=== PATIENT | male | born 1945 | race Caucasian/White ===

== ENCOUNTER 2017-01-09 12:04 | Emergency (ER) | payer MEDICARE, OTHER ==
[~2017-01-09] VITALS: Ht 175.3 cm; Wt 104.5 kg
[~2017-01-09 12:04] MED LIST: ASPIRIN 81M81 MG/TA2 PO; ASPIRIN E.C. 8181 MG PO; BENZAMYCIN 5%-31 GEL TP; CEPHALEXIN500 M1 PO; HCTZ 25MG TAB25 MG PO; IMDUR 30MG30 MG/TAB PO; K-TAB20 PO; LIPITOR 40MG TA40 MG PO; LOPRESSOR 225 MG/TAB PO; NO HOME MEDICATIONS; OMEGA-3 FISH1000 MG PO; PERCOCET 325 MG1 TA2 PO; PLAVIX 75MG TAB75 MG PO; PRINIVIL10 MG PO; PROTONIX 40MG T40 MG PO; TOPROL XL 50MG50 MG PO; XANAX 0.5MG0.5 MG PO; [UNRECOGNIZED DRUG - OTHER]
[2017-01-09 12:27] LABS: ARTERIAL BLD GAS O2 SATURATION 98.7 % (92-100); ARTERIAL BLD GAS TCO2 CT 21.6; ARTERIAL BLOOD GAS BASE EXCESS -2.2 (-2-2); ARTERIAL BLOOD GAS HCO3 20.6 meq/L (22-26); ARTERIAL BLOOD GAS PHT 7.44 C (7.35-7.45); ARTERIAL BLOOD GAS pH 7.44 (7.35-7.45); OXYHEMOGLOBIN 97.9 %
[2017-01-09 12:27] LABS: BASO % 0.3 % (0.0-2.0); EOS # 0.1 (0.0-0.7); GRAN # 4.4 (1.4-6.5); GRAN % 63.4 % (42.2-75.2); HEMATOCRIT 46.2 % (42.0-52.0); HEMOGLOBIN 16.2 g/dl (13.5-18.0); LYMPH # 1.9 (1.2-3.4); LYMPH % 26.8 % (20.0-51.0); MEAN CELL VOLUME 91 fl (80.0-100.0); MEAN CORPUSCULAR HEMOGLOBIN 32 pg (27.0-31.0); MEAN CORPUSCULAR HGB CONC 35 g/dl (33.0-37.0); MEAN PLATELET VOLUME 9.6 fl (7.4-10.4); MONO # 0.5 (0.1-0.6); MONO % 6.4 % (1.7-9.3); PLATELET COUNT 215 K/mm3 (130-400); RED BLOOD COUNT 5.07 M/mm3 (4.20-5.60); REDCELL DISTRIBUTION WIDTH-CV 11.8 % (11.5-14.5)
[2017-01-09 12:28] LABS: ARTERIAL BLOOD GAS PO2 161.6 mmHg (80-100); ARTERIAL BLOOD GAS PO2T 161.6 (80-100); ATS? YES
[2017-01-09 12:32] LABS: PROTHROMBIN TIME 11.5 SECONDS (9.7-12.8)
[2017-01-09 12:34] LABS: PARTIAL THROMBOPLASTIN TIME 29.8 SECONDS (26.0-37.0)
[2017-01-09 12:51] LABS: ADJUSTED CALCIUM 8.8 mg/dL (8.4-10.2); ALANINE AMINOTRANSFERASE 178 U/L (21-72); ALBUMIN 4.4 gm/dL (3.5-5.0); ALKALINE PHOSPHATASE 75 U/L (50-136); ANION GAP 13 mmol/L (7-16); BILIRUBIN,TOTAL 0.7 mg/dL (0.0-1.0); BLOOD UREA NITROGEN 7 mg/dL (9-20); CALCIUM 9.1 mg/dL (8.4-10.2); CARBON DIOXIDE 19 mmol/L (22-30); CHLORIDE 107 mmol/L (98-107); CREATININE, serum 0.69 mg/dL (0.66-1.25); GLUCOSE 119 mg/dL (74-106); POTASSIUM 3.5 mmol/L (3.4-5.0); SODIUM 139 mmol/L (137-145); TOTAL PROTEIN 7.3 gm/dL (6.4-8.2)
[2017-01-09 13:04] LABS: TROPONIN-I < 0.012 ng/mL (0.000-0.034)
[2017-01-09 16:27] LABS: PHOSPHOROUS 2.2 mg/dL (2.5-4.5)
[2017-01-09 17:41] VITALS: BP 119/84; PULSE 84; TEMP 98
== END 2017-01-09 16:23 | disposition short-term general hospital (02) ==
LOC: COL.ER 12:04
PROVIDERS: Emergency Medicine
DX: I25.119 Atherosclerotic heart disease of native coronary artery with unspecified angina pectoris (principal); I46.9 Cardiac arrest, cause unspecified; I10 Essential (primary) hypertension; E78.5 Hyperlipidemia, unspecified; R10.816 Epigastric abdominal tenderness; Z95.5 Presence of coronary angioplasty implant and graft; Z87.891 Personal history of nicotine dependence; Z79.02 Long term (current) use of antithrombotics/antiplatelets
CPT/HCPCS: J0282; J1650; J3010; J3475; J3480; J7060

== ENCOUNTER 2018-08-02 10:45 | Outpatient (RCR) | payer MEDICARE, OTHER | END 2018-08-03 10:08 | disposition home or self-care (01) | LOC: MKS.ESL.PT 10:45 | DX: M25.511 Pain in right shoulder (principal) ==

== ENCOUNTER 2023-05-26 09:23 | Inpatient (IN) | payer MEDICARE, OTHER ==
[2023-05-26] VITALS (9 sets, daily range): BP systolic 110–129; BP diastolic 61–80; PULSE 90–110; TEMP 97.6–103.3
[~2023-05-26] VITALS: Ht 172.7 cm; Wt 109.0 kg
[2023-05-26 09:51] LABS: HEMATOCRIT 47.9 % (42.0-52.0); HEMOGLOBIN 16.7 g/dl (13.5-18.0); MEAN CELL VOLUME 92 fl (80.0-100.0); MEAN CORPUSCULAR HEMOGLOBIN 32 pg (27-31); MEAN CORPUSCULAR HGB CONC 35 g/dl (33.0-37.0); PLATELET COUNT 190 K/mm3 (130-400); REDCELL DISTRIBUTION WIDTH-CV 12.3 % (11.5-14.5)
[2023-05-26 10:02] LABS: ALBUMIN 3.8 gm/dL (3.4-4.8); BILIRUBIN,TOTAL 1.5 mg/dL (0.2-1.2); CALCIUM 9.6 mg/dL (8.4-10.2); CREATININE, serum 0.98 mg/dL (0.72-1.25); POTASSIUM 3.2 mmol/L (3.5-4.5); TOTAL PROTEIN 7.5 gm/dL (6.2-8.1)
[2023-05-26 10:08] LABS: TROPONIN-I 0.022 ng/mL (0.00-0.033)
[2023-05-26 10:29] LABS: BAND 32 % (0-10); LYMPHOCYTE 5 % (20.0-51.0); NEUTROPHILS 63 % (42.0-75.2)
[2023-05-26 10:30] LABS: PLATELET ESTIMATE NORMAL (NORMAL)
[2023-05-26 11:13] LABS: COLLECTION METHOD CLEAN CATCH
[2023-05-26 11:36] LABS: PH 5.5 (5.0-8.5); URINE APPEARANCE Hazy (CLEAR/HAZY); URINE BLOOD 2+ (NEGATIVE); URINE COLOR Yellow (YELLOW); URINE GLUCOSE Negative (NEGATIVE); URINE KETONE Negative (NEGATIVE); URINE NITRATE Positive (NEGATIVE); URINE PROTEIN(semi-quant) 2+ (NEGATIVE); URINE UROBILINOGEN 0.2 E.U/dL (0.2-1.0); URINE WBC 20-50 /hpf (0-2)
[2023-05-26 11:37] LABS: MUCOUS Present (NOT PRESENT); SQUAMOUS EPITHELIAL 0-2 /hpf (0-10); URINE BACTERIA Many /hpf (NONE SEEN)
[2023-05-26] MEDS ORDERED: PRAVACHOL80 MG PO (13:35)
[2023-05-26] MEDS ORDERED: TOPROL XL 50MG50 MG PO ×2 (13:37)
[2023-05-26] MEDS ORDERED: COZAAR 25MG25 MG/TAB PO (13:39)
[2023-05-26] MEDS ORDERED: ELIQUIS 5MG PO (13:39)
[2023-05-26] MEDS ORDERED: FLOMAX 0.40.4 MG/CAP PO (13:40)
[2023-05-26] MEDS ORDERED: VITAMIN B125000 MCG PO (13:41)
--- NOTE | 2023-05-26 14:05 | NUR ---
PT ARRIVED TO ROOM 317, FAMILY AT THE BEDSIDE. PT ABLE TO TRANSFER SELF SBA FROM WHEELCHAIR TO BED, AMBULATED WELL SBA TO AND FROM THE BATHROOM. NO COMPLAINT OF PAIN ON ASSESMENT. NO SHORTNESS OF BREATH OR DIFFICULTY BREATHING. PT ON 2L OF O2VIA NC WHEN HE ARRIVED TO THE ROOM, O2SAT ON ROOM AIR WAS 93%. PT CONNECTED TO FOOD SERVICE STEWARD SHOW SINUS TACHY. LUNG SOUNDS CLEAR. NO ABDOMINAL PAIN OR DISCOMFORT. STATES HE IS ABLE TO URINATE WELL, NO URGENCY OR PAIN.
--- NOTE | 2023-05-26 20:00 | NUR ---
PCT reported to this HARDWARE ENGINEERING MANAGER that pt was having an elevated temperature. This tongue trimmer went to check pt's and he states feeling tired and lightheaded. PRN tylenol administered after checking oral t of 103.3. Physical assessment was completed. No pain reported at this time. Belongings and call light are within reach.
--- NOTE | 2023-05-26 20:14 | NUR ---
Temperature checked and is 100.9 at this time. Pt reports feeling good.
[2023-05-26 21:37] LABS: MAGNESIUM 1.5 mg/dL (1.6-2.6); PHOSPHOROUS 2.4 mg/dL (2.3-4.7)
[2023-05-26 22:27] LABS: COLLECTION METHOD CLEAN CATCH
[2023-05-26 22:55] LABS: URINE APPEARANCE Clear (CLEAR/HAZY); URINE BLOOD 2+ (NEGATIVE); URINE COLOR Yellow (YELLOW); URINE GLUCOSE Negative (NEGATIVE); URINE KETONE Negative (NEGATIVE); URINE NITRATE Negative (NEGATIVE); URINE PROTEIN(semi-quant) 1+ (NEGATIVE)
[2023-05-26 23:15] LABS: MUCOUS Present (NOT PRESENT); SQUAMOUS EPITHELIAL 0-2 /hpf (0-10); URINE BACTERIA Rare /hpf (NONE SEEN)
[2023-05-27] VITALS (11 sets, daily range): BP systolic 102–143; BP diastolic 63–85; PULSE 90–96; TEMP 98.4–100
--- NOTE | 2023-05-27 01:14 | NUR ---
When administering pt evening medications, pt expressed a concern regarding his BP medications that were placed on hold and wanted to know the reason. Pt's son called around 0030, requesting to be updated on pt's current status. This nurse answered all his questions, but he was also concerned about BP medications that were on hold due to pt's extensive cardiac history. This nurse reached Vicki, hospitalist and notify her about pt's and son's concerns about this situation, and emar was updated with new orders. Telemetry is in place to monitor pt's HR. All VS are WNL.
[2023-05-27 08:31] LABS: BASO % 0.1 % (0.0-2.0); EOS % 0.1 % (0.0-4.0); GRAN # 11.7 K/mm3 (1.4-6.5); GRAN % 84.3 % (42.2-75.2); HEMATOCRIT 41.8 % (42.0-52.0); LYMPH # 1.1 K/mm3 (1.2-3.4); LYMPH % 7.7 % (20.0-51.0); MEAN CELL VOLUME 92 fl (80.0-100.0); MEAN CORPUSCULAR HEMOGLOBIN 32 pg (27-31); MEAN CORPUSCULAR HGB CONC 35 g/dl (33.0-37.0); MEAN PLATELET VOLUME 9.6 fl (7.4-10.4); MONO % 7.1 % (1.7-9.3); PLATELET COUNT 171 K/mm3 (130-400); RED BLOOD COUNT 4.55 M/mm3 (4.20-5.60); REDCELL DISTRIBUTION WIDTH-CV 12.5 % (11.5-14.5)
[2023-05-27 08:43] LABS: HEMOGLOBIN 14.6 g/dl (13.5-18.0)
[2023-05-27 08:52] LABS: CALCIUM 8.9 mg/dL (8.4-10.2); CREATININE, serum 0.83 mg/dL (0.72-1.25); MAGNESIUM 1.8 mg/dL (1.6-2.6)
--- NOTE | 2023-05-27 10:41 | NUR ---
SW completed intake with patient. Patient provides that he lives in [facility] with spouse Lauren Pardo [phone], and son is a point of contact as well Osvaldo Montiel [phone]. Patient provides that he does not utilize DME, and is independent with ADLs, PCP is Dr. Heard, and pharmacy is [place], patient also states that he does not utilize home health services at this time. Patient provides he plans to return home upon dc. SW will continue to follow. DC plan per patient home, physical therapy recommendation home
--- NOTE | 2023-05-27 10:50 | NUR ---
Patient alert and oriented x4. Denies pain this morning. Shift assessment complete, no new variances noted. Patient noted to be incontinent of urine this morning, urine is tea colored and clear. NS discontinued per orders. Patient assisted in set up for shower, was able to shampoo/wash self. Bed linens changed. Patient currently in bed with call light in reach, all needs met at this time.
--- NOTE | 2023-05-27 18:56 | NUR ---
Patient remains stable, denies pain or discomfort. Appetite adequate. Gait/activity stable. Patient has adequate urine output, urine is yellow/clear. Currently in bed with call light in reach, all needs met at this time.
[2023-05-28] VITALS (7 sets, daily range): BP systolic 120–150; BP diastolic 80–91; PULSE 77–85; TEMP 97.8–98.8
[2023-05-28 07:43] LABS: BASO % 0.1 % (0.0-2.0); EOS # 0.1 K/mm3 (0.0-0.7); EOS % 0.8 % (0.0-4.0); GRAN # 6.3 K/mm3 (1.4-6.5); GRAN % 74.2 % (42.2-75.2); HEMATOCRIT 43.6 % (42.0-52.0); LYMPH # 1.2 K/mm3 (1.2-3.4); LYMPH % 14.5 % (20.0-51.0); MEAN CELL VOLUME 93 fl (80.0-100.0); MEAN CORPUSCULAR HEMOGLOBIN 32 pg (27-31); MEAN CORPUSCULAR HGB CONC 34 g/dl (33.0-37.0); MEAN PLATELET VOLUME 9.2 fl (7.4-10.4); MONO # 0.8 K/mm3 (0.1-0.6); MONO % 9.9 % (1.7-9.3); PLATELET COUNT 180 K/mm3 (130-400); RED BLOOD COUNT 4.68 M/mm3 (4.20-5.60); REDCELL DISTRIBUTION WIDTH-CV 12.4 % (11.5-14.5)
[2023-05-28 07:51] LABS: CALCIUM 8.7 mg/dL (8.4-10.2); CREATININE, serum 0.87 mg/dL (0.72-1.25); POTASSIUM 4.5 mmol/L (3.5-4.5)
--- NOTE | 2023-05-28 08:37 | NUR ---
SHIFT ASSESSMENT COMPLETE. VSS. PATIENT UP BRUSHING HIS TEETH AND CLEANING UP. ALL MORNING MEDS GIVEN PER ORDERS. PATIENT HAS NO COMPLAINTS OR REQUEST AT THIS TIME.
[2023-05-28] MEDS ORDERED: CEPHALEXIN500 M1 PO (11:59)
== END 2023-05-28 13:46 | disposition home or self-care (01) | DRG 871 ==
LOC: COL.ER 09:23 → MEDICAL 11:59 → EDBEDREQ 12:57 → MEDICAL 05-28 13:46
PROVIDERS: Emergency Medicine; Nurse Practitioner Family; ADMIT Internal Medicine
DX: A41.9 Sepsis, unspecified organism (principal); J96.01 Acute respiratory failure with hypoxia; N39.0 Urinary tract infection, site not specified; M54.50 Low back pain, unspecified; I10 Essential (primary) hypertension; Z20.822 Contact with and (suspected) exposure to COVID-19; E78.5 Hyperlipidemia, unspecified; R74.02 Elevation of levels of lactic acid dehydrogenase [LDH]; N40.0 Benign prostatic hyperplasia without lower urinary tract symptoms; E87.6 Hypokalemia; Z95.0 Presence of cardiac pacemaker; Z86.74 Personal history of sudden cardiac arrest; Z88.2 Allergy status to sulfonamides; Z87.891 Personal history of nicotine dependence; Z79.01 Long term (current) use of anticoagulants; Z95.5 Presence of coronary angioplasty implant and graft; Z79.899 Other long term (current) drug therapy; Z79.02 Long term (current) use of antithrombotics/antiplatelets; Z23 Encounter for immunization
CPT/HCPCS: J0696; J3475; J7030; J7120

== ENCOUNTER → 2023-06-21 | Outpatient (CLI) | payer MEDICARE, OTHER ==
[~2023-06-21] MED LIST changes: +COZAAR 25MG25 MG/TAB PO; +ELIQUIS 5MG PO; +FLOMAX 0.40.4 MG/CAP PO; +Iohexol 300 - 100 ML VIAL IV ONE; +NS 100 ML IV SCH; +PRAVACHOL80 MG PO; +VITAMIN B125000 MCG PO
== END ==
LOC: COL.RAD 13:39
DX: N28.89 Other specified disorders of kidney and ureter (principal); K62.89 Other specified diseases of anus and rectum
CPT/HCPCS: Q9967

== ENCOUNTER 2023-07-12 10:02 | Inpatient (IN) | payer OTHER ==
[~2023-07-12] VITALS: Ht 172.7 cm; Wt 103.6 kg
[~2023-07-12 10:02] MED LIST changes: -Iohexol 300 - 100 ML VIAL IV ONE; -NS 100 ML IV SCH
[2023-08-23] VITALS (126 sets, daily range): BP systolic 53–187; BP diastolic 36–91; PULSE 59–86; TEMP 97.9; O2SAT 79–100
[2023-08-23] MEDS ORDERED: Acetaminophen 500 MG TAB PO SCH ×2 (05:30→13:00)
[2023-08-23] MEDS ORDERED: Gabapentin 100 MG CAP PO SCH (05:30)
[2023-08-23] MEDS ORDERED: Celecoxib 200 MG CAP PO SCH (05:30)
[2023-08-23] MEDS ORDERED: LR 1,000 ML IV SCH ×3 (06:18→07:30)
[2023-08-23] MEDS ORDERED: Midazolam 2 MG/2 ML VIAL ONE ×2 (06:19→20:25)
[2023-08-23] MEDS ORDERED: fentaNYL 50 MCG/ML 2 ML VIAL ONE ×4 (06:19→22:10)
[2023-08-23] MEDS ORDERED: Rocuronium 50 MG/5 ML Multi-Dose VIAL ONE ×5 (06:52→22:03)
--- NOTE | 2023-08-23 06:59 | NUR ---
CELEBREX 200MG PO HELD D/T PATIENT REPORTING NAUSEA WITH TAKING MEDICATION.
[2023-08-23] MEDS ORDERED: TOPROL XL200 MG PO (07:06)
[2023-08-23] MEDS ORDERED: LIPITOR 80MG80 MG PO (07:08)
[2023-08-23] MEDS ORDERED: XANAX 0.5MG0.5 MG PO (07:09)
[2023-08-23] MEDS ORDERED: [UNRECOGNIZED DRUG - OTHER] TP (07:10)
[2023-08-23] MEDS ORDERED: REFRESH TEARS 330 ML OP (07:10)
[2023-08-23] MEDS ORDERED: LOTRIMIN45CR TOP (07:11)
[2023-08-23] MEDS ORDERED: VITAMIN D31000 I1 PO (07:13)
--- NOTE | 2023-08-23 07:15 | NUR ---
DR. BOWLES WAS NOTIFIED OF SULFA CAUSING NAUSEA AND VOMITING AND CELEBREX WAS HELD D/T POTENTIAL INTERACTION.
[2023-08-23] MEDS ORDERED: COLACE 100100 MG/CAP PO (07:28)
[2023-08-23] MEDS ORDERED: NORCO 325 MG-51 TAB PO (07:28)
[2023-08-23] MEDS ORDERED: Ondansetron 4 MG/2 ML VIAL IV PRN ×2 (07:30→10:30)
[2023-08-23] MEDS ORDERED: oxyCODONE 5 MG TAB PO PRN (07:30)
[2023-08-23] MEDS ORDERED: Naloxone 0.4 MG/ML VIAL IV PRN (07:30)
[2023-08-23] MEDS ORDERED: Morphine 4 MG/ML VIAL IV PRN (07:30)
[2023-08-23] MEDS ORDERED: Topical Skin Adhesive 1 EACH (1 ML) TOP ONE ×2 (07:50→23:20)
[2023-08-23] MEDS ORDERED: Isosorbide Mononitrate CR (24-HR) 30 MG TAB PO SCH (09:00)
[2023-08-23] MEDS ORDERED: Meperidine 50 MG/ML 1 ML VIAL IV PRN (10:30)
[2023-08-23] MEDS ORDERED: fentaNYL 50 MCG/ML 2 ML VIAL IV PRN (10:30)
[2023-08-23] MEDS ORDERED: HYDROmorphone 2 MG/1 ML VIAL IV PRN (10:30)
[2023-08-23] MEDS ORDERED: hydrALAZINE 20 MG/ML 1 ML VIAL IV PRN (10:30)
[2023-08-23] MEDS ORDERED: Carboxymethylcellulose PF Ophth 0.4 ML DROPPERETTE OP PRN (11:00)
--- NOTE | 2023-08-23 11:10 | NUR ---
Pt transported from PACU in bed. Pt is Oriented x4, very drowsy. VSS. S1S2. Clear lung sounds, diminished in bases. Pt's SpO2 is ranging from 90-95% on 3.5 L O2 via NC. ABD is rounded, soft. Pt reports ABD discomfort from surgery. x5 lap sits and midline well approximated and skin glue. 2 lap sites have mild drainage, covered with bandaids. Palpable pulses in all extremities. Aldridge catheter is in place with clear yellow urine. 18G in LH with LR at 75 cc/hr. Family ( and daughter) in room. Pt oriented to call light and room.
--- NOTE | 2023-08-23 11:46 | NUR ---
Pt drowsy. \pulse \ox steadily at 94-95%. Titrated O2 to 3 L via NC.
--- NOTE | 2023-08-23 12:54 | NUR ---
Pt's oxygen levels steady at 95-97%. Titrated O2 down to 2L via NC
--- NOTE | 2023-08-23 14:36 | NUR ---
Pt requested to go to bathroom. VSS and pain tolerable. Pt sat at edge of bed and began dry heaving. After 1 min, small emesis - yellow bile. Noticed blood on gown. Pt laid back down and top of midline incision and lap site right above started bleeding. Cleaned Pt up and covered bleeding sites with gauze and foam tape. Will continue to monitor. Pt has call light in reach and bed alarm on.
--- NOTE | 2023-08-23 15:00 | NUR ---
dr Buck updated on patients blood pressures of 90s/50s and incisional bleeding, new dressing applied and cdi. new orders for CBC, BMP, 500cc NS bolus and hospitalist consult, Marylin PASCUAL notified of consult.
[2023-08-23] MEDS ORDERED: NS 500 ML IV ONE (15:15)
--- NOTE | 2023-08-23 15:15 | NUR ---
Marita PASCUAL in to see pt. blood pressures remain stable. pt a&ox4.
[2023-08-23 16:08] LABS: HEMATOCRIT 38.2 % (42.0-52.0); HEMOGLOBIN 13.1 g/dl (13.5-18.0); MEAN CELL VOLUME 93 fl (80.0-100.0); MEAN CORPUSCULAR HEMOGLOBIN 32 pg (27-31); MEAN CORPUSCULAR HGB CONC 34 g/dl (33.0-37.0); MEAN PLATELET VOLUME 9.7 fl (7.4-10.4); PLATELET COUNT 251 K/mm3 (130-400); RED BLOOD COUNT 4.11 M/mm3 (4.20-5.60); REDCELL DISTRIBUTION WIDTH-CV 12.3 % (11.5-14.5)
[2023-08-23 16:16] LABS: CALCIUM 8.4 mg/dL (8.4-10.2); POTASSIUM 4.6 mEq/L (3.5-4.5)
[2023-08-23] MEDS ORDERED: LR 500 ML IV ONE (16:45)
--- NOTE | 2023-08-23 17:00 | NUR ---
Updated Marylin Richards about Pt's BP (90s/50s with maps in low 70s). Marylin stated she was leaving for the day but Dr Torrez would be taking over.
--- NOTE | 2023-08-23 17:10 | NUR ---
spoke to strategy execution consultant occupational analyst with Dr Jhon Harley office in [place] at [phone] about prior records from their office. provider does not have faxing capabilities, if records are needed will need to call the office back tomorrow. 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 Last echo on 07/10/23 showed EF of 55-60%. No hx of CHF. pt on Eliquis and Plavix, both medications have been on hold for surgery.
[2023-08-23 17:30] LABS: BAND 5 % (0-10); LYMPHOCYTE 2 % (20.0-51.0); NEUTROPHILS 90 % (42.0-75.2); PLATELET ESTIMATE NORMAL (NORMAL)
--- NOTE | 2023-08-23 17:31 | NUR ---
1500 - Pt reported he needed to have a BM. Sat Pt on side of bed. Pt started dry heaving and Blood Pressures dropped. Pt had small yellow emesis. Laid Pt back in bed. 1545 - Pt reported shoulder pain, aching. Post Op Vitals showed drop in BP. Notified hospitalist. Per Marylin Richards, run 500 NS bolus. After bolus pressures elevated to 90s/50s with MAPs in low 60s. Marylin Richards ordered second bolus (500 LRS). Pressures remaining in 90/50s. 0515 - Family reported Pt feeling nauseated and dry heaving. Reminded Pt to splint incision. Gauze dressing was bloody. Changed dressing. Placed steri-strips, gauze, and foam tape. Dr Olsen rounded on Pt. Raúl said incision site looks good. Per Dr Marques, ok to run 3rd fluid bolus if needed.
--- NOTE | 2023-08-23 18:00 | NUR ---
this nurse and PCT in w pt to assist off bedpan, pt unsuccessful with bowel movement. pt repositioned in bed. this nurse noticed bleeding through abdominal dressing and new formed swelling on left side of abdomen, pressure applied. bp dropped to 60/36. fluids running at 75ml/hr.
--- NOTE | 2023-08-23 18:15 | NUR ---
dr owen called to update on pts low blood pressures and abominal incision bleeding, reports will be in to see pt.
[2023-08-23] MEDS ORDERED: NS 1,000 ML IV ONE ×3 (18:30→20:00)
[2023-08-23] MEDS ORDERED: Iodixanol-320 100 ML BOTTLE IV ONE (18:44)
[2023-08-23] MEDS ORDERED: NS 50 ML IV SCH (18:44)
[2023-08-23] MEDS ORDERED: LR 1,000 ML IV ONE ×2 (18:45)
--- NOTE | 2023-08-23 18:45 | NUR ---
Primary nurse in room asking for assistance. PCT grabbed me approximately 1800. Pt BP was low and pt appeared lethargic. Lap sites to abd were dripping consistent blood. Primary nurse had reinforced incisions and applied steristrips at earlier time, Dr Buck aware. At [address] Buck for advice on bleeding from incisions. Order for ABD pads to abd followed by abdominal binder. Called House back to get binder. Grabbed supplies while on phone with Dr Buck. Upon entering back to room, VS were dropping and pt appeared pale. ICU charge called at 1814 for cat call then called [employer] Press Operator to notify ICU charge and cat call needed. During this time primary nurse was calling Dr Torrez. All arrived around 1816.
[2023-08-23] MEDS ORDERED: NS 1,000 ML IV SCH ×2 (20:00→21:15)
[2023-08-23] MEDS ORDERED: Lidocaine PF 2% (20 MG/ML) 5 ML VIAL ONE (20:25)
[2023-08-23] MEDS ORDERED: Phenylephrine 10 MG/ML VIAL ONE (20:27)
[2023-08-23] MEDS ORDERED: [UNRECOGNIZED DRUG - OTHER] IV ONE ×2 (20:53→23:10)
[2023-08-23] MEDS ORDERED: HETASTARCH IV ONE ×2 (20:53→23:10)
--- NOTE | 2023-08-23 20:55 | NUR ---
RECEIVED REPORT AT THE BEDSIDE FROM THE DAYTIME SURGICAL NURSES. THE PATIENT IS AWAKE ALERT AND ORIENTED SITTING UP IN THE BED. LOO CATHETER IN PLACE DRAINING URINE. AN IV IN THE LEFT HAND INFUSING A LR FLUID BOLUS FOR LOW BLOOD PRESSURES. WITH THE SURGICAL NURSES WE LOOKED AT THE MIDLINE SURGICAL SITE AND THE LAP SITES. CALL HARDING AT THE BEDSIDE AND BED ALARM ON. FAMILY IS IN THE WAITING ROOM.
[2023-08-23] MEDS ORDERED: Losartan 25 MG TAB PO SCH (21:00)
[2023-08-23 21:37] LABS: BASO % 0.1 % (0.0-2.0); GRAN # 13.4 K/mm3 (1.4-6.5); GRAN % 85.7 % (42.2-75.2); LYMPH # 1.4 K/mm3 (1.2-3.4); LYMPH % 8.6 % (20.0-51.0); MEAN CELL VOLUME 95 fl (80.0-100.0); MEAN CORPUSCULAR HGB CONC 34 g/dl (33.0-37.0); MEAN PLATELET VOLUME 9.5 fl (7.4-10.4); MONO # 0.8 K/mm3 (0.1-0.6); PLATELET COUNT 256 K/mm3 (130-400); RED BLOOD COUNT 3.19 M/mm3 (4.20-5.60); REDCELL DISTRIBUTION WIDTH-CV 12.5 % (11.5-14.5)
[2023-08-23 21:40] LABS: HEMATOCRIT 30.2 % (42.0-52.0); HEMOGLOBIN 10.3 g/dl (13.5-18.0); MEAN CORPUSCULAR HEMOGLOBIN 32 pg (27-31)
[2023-08-23 21:55] LABS: INR 1.2 (0.8-3.0); PROTHROMBIN TIME 13.4 SECONDS (9.7-12.8)
[2023-08-23] MEDS ORDERED: Tranexamic Acid 1,000 MG/10 ML VIAL ONE ×2 (22:04→23:14)
[2023-08-23 22:25] LABS: PARTIAL THROMBOPLASTIN TIME 17.7 SECONDS (26.0-37.0)
--- NOTE | 2023-08-23 23:50 | NUR ---
RECEIVED PT BACK FROM THE OR. THE PATIENT HAS RETURNED INTUBATED. NO DRIP SEDATION OR PAIN MEDICATION. PT HAS NS DRIPPING IN CURRENTLY. LOO CATHETER REMAINS IN PLACE. A LEFT RADIAL ART LINE AND RIGHT IJ WERE PLACED IN THE OR. THE PATIENT HAS [place] DRAIN IN PLACE DRAINING BLOOD AND FILLING THE BULB RATHER QUICKLY. PT STILL HAS THE MIDLINE INCISION AND LAP SITES FROM THE PREVIOUS SURGERY.
--- NOTE | 2023-08-23 23:55 | NUR ---
SPOKE TO DR. GRULLON CONCERNING THE PATIENTS [place] DRAIN. THE DRAINAGE APPEARS TO BE BLOODY AND THERE IS A CONTINUOUS DRIP IN THE KY. THERE WAS APPROX 170ML OUT IN 15 MINUTES. DID NOT RECEIVED ANY NEW ORDERS AND WAS TOLD TO MONITOR HEMODYNAMICS.
[2023-08-24] VITALS (1299 sets, daily range): BP systolic 102–148; BP diastolic 49–79; PULSE 60–86; TEMP 97.1–98.2; O2SAT 82–100
[2023-08-24 00:38] LABS: BASO % 0.1 % (0.0-2.0); GRAN # 9.9 K/mm3 (1.4-6.5); GRAN % 86.3 % (42.2-75.2); HEMOGLOBIN 11.3 g/dl (13.5-18.0); LYMPH # 0.8 K/mm3 (1.2-3.4); LYMPH % 7.2 % (20.0-51.0); MEAN CELL VOLUME 93 fl (80.0-100.0); MEAN CORPUSCULAR HEMOGLOBIN 31 pg (27-31); MEAN CORPUSCULAR HGB CONC 33 g/dl (33.0-37.0); MEAN PLATELET VOLUME 9.8 fl (7.4-10.4); MONO # 0.7 K/mm3 (0.1-0.6); MONO % 5.9 % (1.7-9.3); PLATELET COUNT 212 K/mm3 (130-400); RED BLOOD COUNT 3.64 M/mm3 (4.20-5.60); REDCELL DISTRIBUTION WIDTH-CV 14.1 % (11.5-14.5)
[2023-08-24 00:40] LABS: HEMATOCRIT 33.8 % (42.0-52.0)
[2023-08-24] MEDS ORDERED: Naloxone 0.4 MG/ML VIAL IV PRN (00:45)
[2023-08-24] MEDS ORDERED: fentaNYL 100 ML IV SCH (00:45)
[2023-08-24 00:51] LABS: CALCIUM 7.2 mg/dL (8.4-10.2); CREATININE, serum 1.07 mg/dL (0.72-1.25); MAGNESIUM 1.5 mg/dL (1.6-2.6); POTASSIUM 4.9 mEq/L (3.5-4.5)
[2023-08-24 04:08] LABS: ARTERIAL BLOOD GAS BASE EXCESS -5.5 (-2-2); ARTERIAL BLOOD GAS HCO3 18.7 meq/L (22-26); ARTERIAL BLOOD GAS PCO2 32.1 mmHg (35-45); ARTERIAL BLOOD GAS PO2 80.7 mmHg (80-100); ARTERIAL BLOOD GAS pH 7.38 (7.35-7.45)
[2023-08-24 04:09] LABS: ARTERIAL BLD GAS O2 SATURATION 96.3 % (92-100); ARTERIAL BLD GAS TCO2 CT 15.5
[2023-08-24 05:43] LABS: BASO % 0.1 % (0.0-2.0); GRAN # 8.3 K/mm3 (1.4-6.5); HEMOGLOBIN 10.6 g/dl (13.5-18.0); LYMPH # 1.2 K/mm3 (1.2-3.4); MEAN CELL VOLUME 91 fl (80.0-100.0); MEAN CORPUSCULAR HEMOGLOBIN 31 pg (27-31); MEAN CORPUSCULAR HGB CONC 34 g/dl (33.0-37.0); MEAN PLATELET VOLUME 9.4 fl (7.4-10.4); MONO # 1.1 K/mm3 (0.1-0.6); MONO % 10.5 % (1.7-9.3); PLATELET COUNT 188 K/mm3 (130-400); RED BLOOD COUNT 3.39 M/mm3 (4.20-5.60); REDCELL DISTRIBUTION WIDTH-CV 14.7 % (11.5-14.5)
[2023-08-24 06:04] LABS: HEMATOCRIT 30.9 % (42.0-52.0)
--- NOTE | 2023-08-24 07:05 | NUR ---
Report received from YANET Mckeon. Pt currently intubated and sedated; able to follow commands with ease. Blood present in [place] drain. Dr. Buck present during report and aware of output from [place] overnight and this AM. Pt VS within normal limits. Bilateral soft wrist restraints in place. Pt appears to be resting comfortably. Abdomen visualized with YANET Mckeon.
[2023-08-24] MEDS ORDERED: Pantoprazole 40 MG in NS 10 ML IV SCH (09:00)
[2023-08-24] MEDS ORDERED: Magnesium Sulfate 4% 50 ML IV ONE (09:00)
[2023-08-24] MEDS ORDERED: 1: LR 1,000 ML 2: NS 1,000 ML IV SCH (09:00)
[2023-08-24 11:05] LABS: HEMATOCRIT 29.7 % (42.0-52.0); HEMOGLOBIN 10.2 g/dl (13.5-18.0)
--- NOTE | 2023-08-24 11:11 | NUR ---
Dispatcher Street Department met with patient's family at bedside as patient is currently intubated. Patient's , Lauren (ph#[phone]) and daughter, Makenzie are at bedside. [place] a [place] address. Patient is on the Red Team at the [facility] and also sees Dr. Mirna Heard at [facility]. [facility] however also uses [facility] as needed. Patient does not use any DME, is independent with ADLS, and is able to drive. Patient's , Lauren reported there are completed Advance Directives. SW contacted [facility] to obtain a copy. Patient's , Lauren and son, Osvaldo (ph#[phone]) are listed. Discharge Plan: TBD, patient intubated. Possibly Home.
--- NOTE | 2023-08-24 17:28 | NUR ---
SEDATION VACATION NOT NECESSARY; PT ABLE TO WAKE AND FOLLOW COMMANDS WITH EASE.
[2023-08-24 18:37] LABS: HEMATOCRIT 28.5 % (42.0-52.0); HEMOGLOBIN 9.8 g/dl (13.5-18.0)
--- NOTE | 2023-08-24 19:20 | NUR ---
Received report from YANET Bennett. Pt is intubated and sedated at this time. Pt's vitals are stable. ART line in place with a good wave form. Pt has fentanyl, propofol, and NS running at this time. Pt has an OG in that is on LIS. Aldridge is in place with no kinks in tubing. Pt's midline is clean, dry and intact along with the 4 lap sites. KY drain has drainage and the dressing around the site was soaked. Dressing change was done with YANET Bennett. Will continue with pt care.
--- NOTE | 2023-08-24 19:45 | NUR ---
This nurse and YANET Smith doing report and assessing patient together; noticed bloody drainage on abdominal binder and KY dressing soaked with bloody drainage; dressing removed and new one placed around KY. Dr. Buck happened to call during this time to check on pt. This nurse reported to him that pt had 280ml bloody drainage out from KY during dayshift, but now looks like drainage is beginning to increase; asked at one point or amount of drainage he would like to be notified. Dr. Buck states that he does not need to be notified of output from KY even if it is >1000ml. This nurse also reported to him that KY dressing was saturated with bloody drainage and changed. No new orders received.
[2023-08-24 23:54] LABS: HEMATOCRIT 26.8 % (42.0-52.0); HEMOGLOBIN 9.2 g/dl (13.5-18.0)
[2023-08-25] VITALS (1416 sets, daily range): BP systolic 98–137; BP diastolic 48–81; PULSE 64–115; TEMP 97.2–99.7; O2SAT 85–100
[2023-08-25 04:44] LABS: BASO % 0.1 % (0.0-2.0); EOS % 0.1 % (0.0-4.0); GRAN # 5.9 K/mm3 (1.4-6.5); GRAN % 69.6 % (42.2-75.2); LYMPH # 1.7 K/mm3 (1.2-3.4); LYMPH % 20.3 % (20.0-51.0); MEAN CELL VOLUME 93 fl (80.0-100.0); MEAN CORPUSCULAR HGB CONC 33 g/dl (33.0-37.0); MEAN PLATELET VOLUME 9.7 fl (7.4-10.4); MONO # 0.8 K/mm3 (0.1-0.6); MONO % 9.5 % (1.7-9.3); PLATELET COUNT 173 K/mm3 (130-400); RED BLOOD COUNT 2.81 M/mm3 (4.20-5.60); REDCELL DISTRIBUTION WIDTH-CV 14.7 % (11.5-14.5)
[2023-08-25 04:48] LABS: HEMATOCRIT 26.2 % (42.0-52.0); HEMOGLOBIN 8.7 g/dl (13.5-18.0); MEAN CORPUSCULAR HEMOGLOBIN 31 pg (27-31)
[2023-08-25 05:02] LABS: CALCIUM 7.6 mg/dL (8.4-10.2); MAGNESIUM 2.1 mg/dL (1.6-2.6); POTASSIUM 4.2 mEq/L (3.5-4.5)
[2023-08-25 05:46] LABS: ARTERIAL BLD GAS O2 SATURATION 98.2 % (92-100); ARTERIAL BLD GAS TCO2 CT 21.9; ARTERIAL BLOOD GAS BASE EXCESS -2.9 (-2-2); ARTERIAL BLOOD GAS HCO3 20.9 meq/L (22-26); ARTERIAL BLOOD GAS PCO2 32.5 mmHg (35-45); ARTERIAL BLOOD GAS PO2 119.3 mmHg (80-100); ARTERIAL BLOOD GAS pH 7.43 (7.35-7.45)
--- NOTE | 2023-08-25 06:22 | NUR ---
Sedation vacation not done due to wanting pt to get rest and not to cough. When pt starts to wake up they will start to cough on the vent and want to prevent causing a rupture and a bleed in the abdomen. Pt follows commands on the sedation that he is on at this time.
--- NOTE | 2023-08-25 06:28 | NUR ---
Pt had an uneventful night. Pt has a KY drain in place. Pt is intubated and lying in bed with propofol, fentanyal, and fluids running at this time. Pt has a serrano in place with no kinks in tubing and had adequate urine output. Pt's vitals have been stable throuhgout the night. Pt's midline site and four lap sites are clean, dry and intact and open to air. Pt's KY dressing has been clean, dry and intact since it was changed at the beginning of the shift. Will give report to day shift nurse.
--- NOTE | 2023-08-25 07:00 | NUR ---
Report received from YANET Smith. Pt has no major events overnight. HGB continues to trend down. BP running 90's over 40's. Pt able to wake and follow commands. 190ml bloody fluid out of KY drain. Pt remains intubated and sedated. Bilateral soft wrist restraints in place for line protection. Pt tolerating ventilator well. No signs or symptoms of discomfort at this time.
--- NOTE | 2023-08-25 08:40 | NUR ---
Sedation turned off at 0840 for weaning trial and patient placed on weaning trial by RT shortly after. Pt extubated at 0933 by MOHIT Miranda. Pt tolerated well and now wearing 4L NC. Pt alert and orieted. Follows commands with eaase and asks questions about what occured. Pt's questioned answered appropriately. Pt's and daughter aware of extubation and brought back to pt's room shortly after.
[2023-08-25] MEDS ORDERED: LR 1,000 ML IV SCH (08:45)
[2023-08-25] MEDS ORDERED: hydrALAZINE 20 MG/ML 1 ML VIAL IV PRN (11:15)
--- NOTE | 2023-08-25 11:15 | NUR ---
Patient is extubated and PT/OT are ordered. Will await their evaluations for recommendation on disposition.
--- NOTE | 2023-08-25 14:36 | NUR ---
This nurse was in pt's room and noticed on monitor that patient's heart rhythm was in AFIB with a rate in the 110's-120. Pt's BP remains within range and patient is not symptomatic. Attempted to notify Dr. Torrez but was unable to reach her.
[2023-08-25] MEDS ORDERED: ASPIRIN E.C. 8181 MG PO (14:40)
[2023-08-25] MEDS ORDERED: Metoprolol Tartrate 50 MG TAB PO SCH (15:13)
[2023-08-25 19:01] LABS: HEMATOCRIT 26.8 % (42.0-52.0); HEMOGLOBIN 9.1 g/dl (13.5-18.0)
[2023-08-26] VITALS (1327 sets, daily range): BP systolic 104–126; BP diastolic 59–87; PULSE 68–102; TEMP 97.6–98.7; O2SAT 82–100
[2023-08-26 04:47] LABS: BASO % 0.1 % (0.0-2.0); EOS # 0.1 K/mm3 (0.0-0.7); EOS % 0.8 % (0.0-4.0); GRAN # 5.3 K/mm3 (1.4-6.5); GRAN % 67.3 % (42.2-75.2); LYMPH # 1.7 K/mm3 (1.2-3.4); LYMPH % 21.7 % (20.0-51.0); MEAN CELL VOLUME 93 fl (80.0-100.0); MEAN CORPUSCULAR HGB CONC 34 g/dl (33.0-37.0); MEAN PLATELET VOLUME 9.6 fl (7.4-10.4); MONO # 0.8 K/mm3 (0.1-0.6); MONO % 9.7 % (1.7-9.3); PLATELET COUNT 180 K/mm3 (130-400); RED BLOOD COUNT 2.72 M/mm3 (4.20-5.60); REDCELL DISTRIBUTION WIDTH-CV 14.5 % (11.5-14.5)
[2023-08-26 04:53] LABS: HEMATOCRIT 25.4 % (42.0-52.0); HEMOGLOBIN 8.5 g/dl (13.5-18.0); MEAN CORPUSCULAR HEMOGLOBIN 31 pg (27-31)
[2023-08-26 05:04] LABS: CALCIUM 8.1 mg/dL (8.4-10.2); CREATININE, serum 0.96 mg/dL (0.72-1.25); MAGNESIUM 1.9 mg/dL (1.6-2.6); POTASSIUM 3.9 mEq/L (3.5-4.5)
--- NOTE | 2023-08-26 07:51 | NUR ---
RECEIVED REPORT FROM NIGHTSHIFT RNCABRERA. PATIENT RESTING IN BED WITH EYES CLOSED. BED IN A LOW POSITION, ALARM ON. CALL LIGHT WITHIN REACH.
--- NOTE | 2023-08-26 08:56 | NUR ---
HEAD TO TOE ASSESSMENT COMPLETED. PATIENT IS ALERT AND ORIENTED, BUT DROWSY. PATIENT HAS DISCOMFORT IN ABDOMEN. PUPILS EQUAL AND REACTIVE. HEART SOUNDS REGULAR WITH S1 AND S2 NOTED. LUNG SOUNDS CLEAR BILATERALLY WITH DIMINISHING NOTED TO BASES BILATERALLY. BOWEL SOUNDS ACTIVE X4. MIDLINE INCISION AND 4 LAP SITES CLEAN, DRY, AND INTACT WITH GLUE. PATIENT HAS LOO DRAINING CLEAR, YELLOW URINE. KY DRAIN WITH PROSPER RED BLOOD. PULSES PRESENT AND EQUAL BILATERALLY IN UPPER AND LOWER EXTREMITIES. PATIENT HAS EDEMA NOTED TO BILATERAL LOWER EXTREMITIES AND HANDS. MEDICATIONS ADMINISTERED PER EMAR. BED IN A LOW POSITION. CALL LIGHT WITHIN REACH.
[2023-08-26] MEDS ORDERED: Phenol 1.4% Spray 180 ML BOTTLE MM PRN (09:00)
--- NOTE | 2023-08-26 14:24 | NUR ---
KY drain discontinued per orders. Guaze and tape applied to wound. Pt tolerated procedure without difficulty.
--- NOTE | 2023-08-26 14:26 | NUR ---
Art line disconinued per orders. Pt toleated procedure without issues. Pressure held for 5 mintures and dressed with gazue and tegaderm.
[2023-08-27] VITALS (475 sets, daily range): BP systolic 127–148; BP diastolic 60–80; PULSE 72–102; TEMP 98–98.8; O2SAT 90–100
[2023-08-27 05:13] LABS: BASO % 0.1 % (0.0-2.0); EOS # 0.1 K/mm3 (0.0-0.7); EOS % 1.5 % (0.0-4.0); GRAN # 5.7 K/mm3 (1.4-6.5); GRAN % 71.1 % (42.2-75.2); LYMPH # 1.5 K/mm3 (1.2-3.4); LYMPH % 18.2 % (20.0-51.0); MEAN CELL VOLUME 90 fl (80.0-100.0); MEAN CORPUSCULAR HGB CONC 35 g/dl (33.0-37.0); MEAN PLATELET VOLUME 9.4 fl (7.4-10.4); MONO # 0.7 K/mm3 (0.1-0.6); MONO % 8.3 % (1.7-9.3); PLATELET COUNT 183 K/mm3 (130-400); RED BLOOD COUNT 2.75 M/mm3 (4.20-5.60); REDCELL DISTRIBUTION WIDTH-CV 13.5 % (11.5-14.5)
[2023-08-27 05:15] LABS: HEMATOCRIT 24.8 % (42.0-52.0); HEMOGLOBIN 8.6 g/dl (13.5-18.0); MEAN CORPUSCULAR HEMOGLOBIN 31 pg (27-31)
[2023-08-27 05:33] LABS: CALCIUM 8.2 mg/dL (8.4-10.2); CREATININE, serum 0.86 mg/dL (0.72-1.25); MAGNESIUM 1.7 mg/dL (1.6-2.6); POTASSIUM 3.8 mEq/L (3.5-4.5)
--- NOTE | 2023-08-27 08:52 | NUR ---
RECEIVED REPORT FROM NIGHTSHIFT RNCABRERA. PATIENT RESTING IN BED WITH EYES CLOSED AT THIS TIME. BED IN A LOW POSITION, ALARM ON. CALL LIGHT WITHIN REACH.
--- NOTE | 2023-08-27 08:55 | NUR ---
HEAD TO TOE ASSESSMENT COMPLETED. PATIENT IS ALERT AND ORIENTED. PUPILS EQUAL AND REACTIVE. HEART SOUNDS REGULAR WITH S1 AND S2 NOTED. LUNG SOUNDS CLEAR BILATERALLY WITH DIMINISHING IN THE BASES. BOWEL SOUNDS ACTIVE X4. MID-LINE INCISION AND LAP SITES ALL CLEAN AND INTACT WITH GLUE. KY DRAIN SITE DRESSING CDI. PATIENT HAS LOO IN PLACE DRAINING CLEAR, YELLOW URINE. PULSES PRESENT BILATERALLY IN UPPER AND LOWER EXTREMITIES. MEDICATIONS ADMINISTERED PER EMAR. NO NEW SKIN ISSUES NOTED. BREAKFAST AT BEDSIDE. PATIENT SAT UP IN BED TO EAT. BED IN A LOW POSITION, ALARM ON. CALL LIGHT WITHIN REACH.
--- NOTE | 2023-08-27 11:59 | NUR ---
REPORT CALLED TO SHIRA LOG HOOKER. PATIENT TRANSPORTED VIA BED ACCOMPANIED BY THIS RN AND JUANITA STUDENT NURSE. ALL BELONGINGS TAKEN WITH. FAMILY AT BEDSIDE. PATIENT MOVED INTO ROOM 323 ON SURGICAL.
--- NOTE | 2023-08-27 12:03 | NUR ---
PT TX FROM ICU TO 323. PT IS AXOX3. PT IS ON RA AND NOT ON TELE. VSS. FAMILY BEDSIDE. IVF RUNNING. PT AND FAMILY ORIENTED TO ROOM AND UNIT. CALL LIGHT GIVEN TO PT AND INSTRUCTED TO CALL WITH ALL NEEDS.
--- NOTE | 2023-08-27 18:52 | NUR ---
Medicated with Oxycodone 5mg po for back and abd pain.
--- NOTE | 2023-08-27 21:00 | NUR ---
Pt given HS meds. Abd with bruising, has robotic sites x4 glued/dry, has small midline glued/dry. Has old KY site with dry drsg covering. Voiding per urinal without problem. SCD's on. Has RIJ with IVF infusing without problem.
--- NOTE | 2023-08-27 23:03 | NUR ---
Asking for pain meds, Oxycodone 5mg po given now for abd and back pain.
[2023-08-28] VITALS (11 sets, daily range): BP systolic 134–153; BP diastolic 74–82; PULSE 74–82; TEMP 97.8–98.8
--- NOTE | 2023-08-28 03:39 | NUR ---
PT AWAKE, VOIDING WITHOUT PROBLEM. IVF CONTINUE TO RIJ. MEDICATED WITH OXYCODONE 5MG PO FOR ABD PAIN.
[2023-08-28] MEDS ORDERED: Magnes Hydrox (MOM) 80 MG/ML 30 ML CUP PO ONE (07:15)
--- NOTE | 2023-08-28 07:45 | NUR ---
Pt laying in bed. A&Ox4. VSS. S1S2. Claer lung sounds, diminished in bases. ABD is rounded, soft. Pt reports aching soreness across ABD. Pt states pain is more discomfort and rates it 5/10. Refused medication. Pt using urinal at bedside for voiding - no issues, clear, yellow urine. Pt has midline incision - well approximated and open to air. 4 lap sites are CDI covered with bandaids. Large ecchymosis on left flank spanning from lower ribs to pelvic area. SCDs on. Pt has call light in reach and bed alarm on.
[2023-08-28] MEDS ORDERED: Polyethylene Glycol 3350 17 GM PDS PO SCH (09:01)
--- NOTE | 2023-08-28 12:06 | NUR ---
Pt sitting up in chair. Pt reporting back aches (chronic), 08/29. Pt stated he would stay sitting up until after lunch then would like to lay down and requested pain meds at that time. at bedside. Pt reported feeling week in the legs when PT was working with him. Talked to Pt and family abour rebuilding strength and it may take some time. No further needs at this time. Call light in reach and chair alarm on.
--- NOTE | 2023-08-28 12:41 | NUR ---
Pt in bed side chair. Repositioned Pt to sit up with lunch tray. No further needs at this time. Chair alarm on, call hernandez in reach.
--- NOTE | 2023-08-28 16:11 | NUR ---
Pt laying in bed, son at bedside. Pt reports pain is better, but still present. Rates pain 5/10, mainly an ache in lower back. Pt open to trying a warm blanket to see if pain can be relieved. Pt had a few questions regarding bowel regiment and laxatives. Answered Pt questions. Pt has call light in reach and bed alarm is on.
--- NOTE | 2023-08-28 17:30 | NUR ---
Pt laying in bed. at bedside. Pt reporting aching pain in lower back - refuses pain meds at this time. Pt had questions regarding IPR. Discussed and answered patient and family questions. Pt seemed agreeable to IPR and expressed interestin more Physical Therapy.
[2023-08-28] MEDS ORDERED: Docusate Sodium 100 MG CAP PO SCH (21:00)
--- NOTE | 2023-08-28 21:51 | NUR ---
PT IN BED, ASSISTED WITH REPOSITIONING UP IN THE BED. HS MEDS GIVEN INCLUDING OXYCODONE 5MG PO FOR ABD/BACK PAIN. HAS RIJ WITH IVF INFUSING WITHOUT PROBLEM. DRSG D/I TO OLD KY SITE, OTHER ROBOTIC INCISIONS TO ABD GLUED/DRY. VOIDING WITHOUT PROBLEM YELLOW URINE. SCDS ON. REPORTS SMALL BM TODAY.
[2023-08-29] VITALS (7 sets, daily range): BP systolic 139–144; BP diastolic 70–84; PULSE 76–90; TEMP 98–99.5
--- NOTE | 2023-08-29 05:29 | NUR ---
PT ASKING IF HE STILL NEEDS THE IVF, VOIDING WELL. EATING AND DRINKING WITHOUT PROBLEM. [facility] DRAWN [facility].
[2023-08-29 06:30] LABS: BASO % 0.1 % (0.0-2.0); EOS # 0.2 K/mm3 (0.0-0.7); EOS % 2.5 % (0.0-4.0); GRAN # 5.8 K/mm3 (1.4-6.5); GRAN % 68.2 % (42.2-75.2); LYMPH # 1.4 K/mm3 (1.2-3.4); LYMPH % 16.2 % (20.0-51.0); MEAN CELL VOLUME 90 fl (80.0-100.0); MEAN CORPUSCULAR HGB CONC 35 g/dl (33.0-37.0); MEAN PLATELET VOLUME 9.6 fl (7.4-10.4); MONO % 11.7 % (1.7-9.3); PLATELET COUNT 218 K/mm3 (130-400); RED BLOOD COUNT 2.88 M/mm3 (4.20-5.60); REDCELL DISTRIBUTION WIDTH-CV 13.5 % (11.5-14.5)
[2023-08-29 06:31] LABS: HEMATOCRIT 25.8 % (42.0-52.0); HEMOGLOBIN 9.1 g/dl (13.5-18.0); MEAN CORPUSCULAR HEMOGLOBIN 32 pg (27-31)
[2023-08-29 06:48] LABS: CALCIUM 8.4 mg/dL (8.4-10.2); CREATININE, serum 0.83 mg/dL (0.72-1.25); MAGNESIUM 1.9 mg/dL (1.6-2.6)
--- NOTE | 2023-08-29 07:55 | NUR ---
Pt laying in bed. A&Ox4. VSS. S1S2. Clear lungs, diminished in bases. ABD is rounded, soft, non-tender. Pt reports pain 3/10 across lower back. Offered pain meds or warm blanket, Pt refused. Palpable pulses in lower extremities. Central line is patent. Positive blood draw in blue and brown ports. White port does not pull back, but flushes easiliy. x4 Lap sites are well approximated with mild redness. Midline incision is well approximated. Previous drain site is CDI with gauze covering. Ecchymosis along L flank from lower ribs to top of pelvis. Repositioned Pt. Call light in reach and bed alarm on.
--- NOTE | 2023-08-29 09:16 | NUR ---
SW attended cinical rounds. Patient to be discharged to IPR today. Patient agreeable. JOE collaborated with IPR Director Enedina. Discharge Plan: IPR
--- NOTE | 2023-08-29 10:34 | NUR ---
Pt reports feeling generalized weakness. Yellowing Ecchymosis noted on left abdomen from rib cage to groin. Pt reports 3/10 pain, but denies pain medication at this time. Pt stated he has no appetite when asked about a lunch tray. is at bedside. VSS. Call light within reach.
[2023-08-29] MEDS ORDERED: FERROUS SU325 MG/TAB PO (11:35)
[2023-08-29] MEDS ORDERED: TYLENOL 500MG500 MG PO (11:36)
[2023-08-29] MEDS ORDERED: COLACE 100100 MG/CAP PO (11:36)
[2023-08-29] MEDS ORDERED: MIRALAX PA17 GM/Dose PO (11:36)
[2023-08-29] MEDS ORDERED: ROXICODONE 55 MG/TAB PO (11:36)
[2023-08-29] MEDS ORDERED: ZOFRAN ODT4 MG PO (11:37)
--- NOTE | 2023-08-29 11:49 | NUR ---
REMOVED IJ TRIPPLE LUMEN PER ORDER. TIP INTACT, PRESSURE HELD UNTIL HEMOSTASIS ACHIEVED, DRESSED WITH 2X2 AND TEGADERM. PT TOLERATED WELL.
--- NOTE | 2023-08-29 11:50 | NUR ---
Pt laying in bed, charge nurse removed R IJ Central Line. Pressure held and a Gauze dressing with tegaderm was placed. Pt laying flat for 15 minutes to observe.
[2023-08-29] MEDS ORDERED: Ferrous Sulfate 325 MG TAB PO SCH (12:00)
--- NOTE | 2023-08-29 12:05 | NUR ---
Pt laying flat. R IJ site is CDI. Pt has call light in reach and bed alarm on.
--- NOTE | 2023-08-29 12:16 | NUR ---
Pt laying in bed with family at bedside. Pt reports sharp pain at site where sutures were removed from RIJ catheter. No further needs at this time. Call light in reach and bed alarm on.
--- NOTE | 2023-08-29 12:32 | NUR ---
Pt being moved to IPR. Belongs packed and transferred to Room 337. Report given to IPR Nurse.
== END 2023-08-29 12:43 | DRG 656 ==
LOC: INPTSU 08-23 05:26 → SURG 08-23 05:26 → EDSTATUS 08-23 07:30 → SDCO 08-23 07:30 → SURG 08-23 11:10 → ICU 08-23 19:28 → SURG 08-27 11:56
PROVIDERS: Internal Medicine; Internal Medicine Pulmonary Disease; ADMIT Urology
PROC: 0WCH4ZZ Extirpation of Matter from Retroperitoneum, Percutaneous Endoscopic Approach (ICD-10-PCS; 2023-08-23)
PROC: 8E0W3CZ Robotic Assisted Procedure of Trunk Region, Percutaneous Approach (ICD-10-PCS; 2023-08-23)
PROC: 30233N1 Transfusion of Nonautologous Red Blood Cells into Peripheral Vein, Percutaneous Approach (ICD-10-PCS; 2023-08-23)
PROC: 5A1945Z Respiratory Ventilation, 24-96 Consecutive Hours (ICD-10-PCS; 2023-08-23)
PROC: 0TT14ZZ Resection of Left Kidney, Percutaneous Endoscopic Approach (ICD-10-PCS; principal; 2023-08-23 07:30)
PROC: 0DNU4ZZ Release Omentum, Percutaneous Endoscopic Approach (ICD-10-PCS; 2023-08-23 21:00)
DX: C64.2 Malignant neoplasm of left kidney, except renal pelvis (principal); K68.3 Retroperitoneal hematoma; R57.1 Hypovolemic shock; D62 Acute posthemorrhagic anemia; E87.20 Acidosis, unspecified; I10 Essential (primary) hypertension; I95.9 Hypotension, unspecified; R09.02 Hypoxemia; I48.91 Unspecified atrial fibrillation; K66.0 Peritoneal adhesions (postprocedural) (postinfection); K21.9 Gastro-esophageal reflux disease without esophagitis; I25.10 Atherosclerotic heart disease of native coronary artery without angina pectoris; N40.0 Benign prostatic hyperplasia without lower urinary tract symptoms; R73.9 Hyperglycemia, unspecified; E78.5 Hyperlipidemia, unspecified; Z79.01 Long term (current) use of anticoagulants; Z79.891 Long term (current) use of opiate analgesic; Z79.02 Long term (current) use of antithrombotics/antiplatelets; Z95.810 Presence of automatic (implantable) cardiac defibrillator; Z95.5 Presence of coronary angioplasty implant and graft; Z87.891 Personal history of nicotine dependence; Z88.2 Allergy status to sulfonamides
CPT/HCPCS: A4314; A9284; C9113; J0690; J1650; J2250; J2270; J2371; J2405; J2704; J3010; J3475; J7030; J7040; J7060; J7120; P9016; Q9967